=== PATIENT | male | born 1960 | race Caucasian/White ===

== ENCOUNTER → 2021-07-03 | Outpatient (CLI) | payer OTHER ==
[~2021-07-03] VITALS: Ht 175.3 cm; Wt 104.3 kg
[~2021-07-03] MED LIST: ASA81BEC PO; COREG6.25 MG PO; CURCUMIN1 GM PO; DAILY VITAMIN1 EAC6 PO; FISH OIL 1,001000 M3 PO; FLUOXETINE HCL20 M1 PO; LIPITOR40 MG PO; PSYLLIUM FIBE0.52 GM PO; VITAMIN D350 MC3 PO
--- NOTE | 2021-07-06 17:53 | P ---
[facility] [place] [address] PROCEDURE REPORT Name: HEENA SOSA Room #: REG HERNANDEZ Gino#: [id number] Admission: 07/03/21 Attend Phys: Carlos Youssef Discharge: Date of : 64 Report #: [id number] THIS REPORT FOR: cc: Ben Inman MD,Carlos Jc MD, MD ~ cc: Ben Inman MD DATE OF SERVICE: 07/03/2021 PROCEDURE PERFORMED: Upper endoscopy with biopsies. HISTORY OF PRESENT ILLNESS: The patient is a 61-year-old male who was evaluated in the Emergency Room approximately a week ago for melanotic stools. He has been on long-term aspirin for a previous history of coronary artery disease and [place] in 2017. He has had previous ulcer in the past. At that time, he was on a PPI for a period of time, but has not been on this medication for several years. He was noted to have a hemoglobin of 11 per the patient. He was started on Protonix at that time as well as Carafate. He denies any further signs of melanotic stools. He denies any heartburn symptoms or dysphagia. Plan is for upper endoscopy. DESCRIPTION OF PROCEDURE: The risks and benefits of the procedure were explained to the patient, those risks including but not limited to bleeding, perforation and the risk of sedation. He understood these risks and gave informed consent. Sedation was given using propofol per Anesthesia. Next, using a standard Olympus upper endoscope, the scope was placed in the patient's mouth and advanced under direct vision through the esophagus, stomach and into the second portion of the duodenum. The esophagus was normal throughout. The GE junction was normal. Overall, the gastric mucosa was normal. The pylorus was normal and patent. In the duodenal bulb, a 1.5-2 cm clean white based ulcer was noted. No evidence of bleeding. The first and second portion of the duodenum were normal. The scope was then brought back up into the patient's stomach and biopsies were obtained to rule out H. pylori. The scope was then withdrawn and the procedure terminated. The patient tolerated the procedure well. IMPRESSION: 1. Duodenal bulb ulcer, likely source of recent melanotic stools. No evidence of bleeding at this time. 2. Otherwise, normal upper endoscopy. RECOMMENDATIONS: 1. Await biopsy results. 2. Recommend long-term daily PPI therapy. 3. Would continue Carafate for the next 2 weeks. [facility] [address] [place] [address] PROCEDURE REPORT Name: HEENA SOSA Room #: REG [facility].#: [id number] Admission: 07/03/21 Attend Phys: Carlos Youssef Discharge: Date of : 64 Report #: [id number] 4. Continue to monitor hemoglobin. Thank you for allowing me to participate in his care. <ELECTRONICALLY SIGNED> By: Carlos Montes MD 07/06/21 1753 [id number] [id number] Carlos Motnes MD /nt
--- NOTE | 2021-07-06 18:06 | PATH ---
[facility] [address] [place] [address] PATHOLOGY RPT PROCEDURE Name: ESTEPHANIA SOSA Room #: REG HERNANDEZ Vikram.#: [id number] Admission: 07/03/21 Date of : 64 Discharge: Report #: [id number] Path Case #: [id number] [facility] Accession Number: [id number] . 01 Material submitted: . gastrointestinal site - GASTRIC BX R/O H. PYLORI . 01 Clinical history: . MELENA EGD . 02 Diagnosis: Gastric mucosa, gastric to rule out H. pylori, endoscopic biopsy: - Mild chronic active gastritis. - Negative for intestinal metaplasia or atrophy. - Negative for Helicobacter pylori (properly controlled immunohistochemical stain performed). (IUV:law firm partner; 07/06/2021) MBR 07/06/2021 1431 Local . 02 Electronically signed: . Cristin Thompson MD, Pathologist NPI- [id number] . 01 Gross description: . The specimen is received in formalin, labeled "Parkman, Estephania R, and gastric BX R/O H. pylori". It consists of 3 nunez irregular soft tissue fragments ranging from 0.4-0.8 cm in greatest dimension. The specimen is entirely submitted between sponges in A1. (MRF; 07/03/2021) MFE/MFE 07/03/2021 1743 Local . 02 Pathologist provided ICD-10: K29.50 . 02 CPT . 440186, [id number] Specimen Comment: A courtesy copy of this report has been sent to [phone] Specimen Comment: Report sent to DR. ATWOOD Performed at: [address], [place] [id number] MD Mauro Bernardo MD Phone: [phone] Performed at: [address] [id number] MD Cristin Thompson MD Phone: [phone]
== END | disposition home or self-care (01) ==
LOC: GI 08:58
PROVIDERS: ATTEND Specialist
DX: K26.9 Duodenal ulcer, unspecified as acute or chronic, without hemorrhage or perforation (principal); K29.50 Unspecified chronic gastritis without bleeding; I10 Essential (primary) hypertension; I25.10 Atherosclerotic heart disease of native coronary artery without angina pectoris; E78.00 Pure hypercholesterolemia, unspecified; I25.2 Old myocardial infarction; G47.30 Sleep apnea, unspecified; Z98.890 Other specified postprocedural states; Z79.899 Other long term (current) drug therapy; Z87.442 Personal history of urinary calculi; Z87.19 Personal history of other diseases of the digestive system; Z20.822 Contact with and (suspected) exposure to COVID-19; Z79.82 Long term (current) use of aspirin
CPT/HCPCS: 62110; 62900